=== PATIENT | male | born 1960 | race Native Hawaiian/Other Pacific Islander ===

== ENCOUNTER 2022-12-03 13:48 | Outpatient (CLI) | payer BC | END 2022-12-03 19:24 | disposition home or self-care (01) | LOC: RESP 13:48 | PROVIDERS: ATTEND Specialist | DX: Z72.0 Tobacco use (principal); I10 Essential (primary) hypertension; R93.89 Abnormal findings on diagnostic imaging of other specified body structures; R06.02 Shortness of breath ==

== ENCOUNTER 2022-12-15 10:27 | Outpatient (CLI) | payer BC | END 2022-12-15 21:20 | disposition home or self-care (01) | LOC: RESP 10:27 | PROVIDERS: ATTEND Specialist | DX: Z72.0 Tobacco use (principal); I10 Essential (primary) hypertension; R93.89 Abnormal findings on diagnostic imaging of other specified body structures; R06.02 Shortness of breath ==